=== PATIENT | female | born 1990 | race Caucasian/White ===

== ENCOUNTER 2022-06-25 14:18 | Emergency (ER) | payer BC, MEDICAID, SELFPAY ==
--- NOTE | ~2022-06-25 | XR_ITS ---
EXAMINATION: XR ankle RT min 3V INDICATION: Right ankle pain TECHNIQUE: Four views of the right ankle are obtained. COMPARISON: None available FINDINGS: There is lateral soft tissue swelling of ankle. Bone alignment is normal. There is no fract ure. The ankle mortise is intact. A plantar calcaneal enthesophyte is noted. IMPRESSION: 1. Ankle soft tissue swelling without acute osseous abnormality. Reviewed, dictated and finalized at location L.
[2022-06-25 14:26] VITALS: BP 113/79; PULSE 99; RESP 16; TEMP 37; O2SAT 99
--- NOTE | 2022-06-25 14:30 | ED.LOWEXIN ---
HPI - Extremity Injury (Lower) General Chief Complaint: Extremity Injury, Lower Stated Complaint: INJURED R ANKLE Time Seen by Provider: 06/25/22 14:25 Source: patient and RN notes reviewed History of Present Illness HPI Narrative: Patient is a 32-year-old female who presents to urgent care with complaints of right ankle swelling and pain. Patient states that she rolled it yesterday while stepping off a curb. Patient states that she has had went a colles her whole life but denies any known fractures. Patient states that she has used ibuprofen and elevated the foot. No other acute complaints. No acute distress noted. Patient aware of the plan of care. Some parts of this dictation were generated by voice recognition software and may contain typographical and/or grammatical inaccuracies. Related Data Allergies Allergy/AdvReac Type Severity Reaction Status Date / Time No Known Allergies Allergy Verified 04/18/22 10:12 Review of Systems Review of Systems: CONSTITUTIONAL: Denies fever, chills, or sweats. EYES: Denies visual changes, redness, or discharge. ENT: Denies rhinorrhea, congestion, sore throat, or otalgia. CARDIOVASCULAR: Denies chest pain, palpitations, or edema. RESPIRATORY: Denies cough or dyspnea. GASTROINTESTINAL: Denies abdominal pain, nausea, vomiting, or diarrhea. GENITOURINARY: Denies dysuria or hematuria. SKIN: Denies rash or itching. MUSCULOSKELETAL: Reports right ankle pain and swelling NEUROLOGIC: Denies headache, numbness, or weakness. All other systems reviewed are negative, except as documented in HPI. [facility] Past Medical History Medical History Anxiety Surgical History Surgical History Delivery by section Family History Family History Mother Patient's mother is in good health Sibling Patient's sister is in good health Patient's brother is in good health Father SOB (shortness of breath) Social History Social History (Updated 04/18/22 @ 10:14 by Rosa Isela Melo MA) Smoking status: Never smoker Smoking end date: 03/24/17 Alcohol intake: current Alcohol use details: occasional Lack of Transportation: No Lack of Food: Never True Current Housing: I Have Housing Concerned About Future Housing: No Difficulty Paying Gas/Electric Bills: No Difficulty Paying for Meds: No Education: Associate Degree Comments At the time of my signature, I reviewed and agree with the nursing past medical, surgical, social, and family history. There is no relevant family history pertinent to the patient complaint. Exam Narrative: GENERAL: This is a well-nourished, well-developed patient, in no apparent distress. HEAD: normocephalic, atraumatic. EYES: PERRL. Sclera clear/white. Vision is grossly intact. EARS: External ears normal NOSE: External nose normal with no obvious nasal discharge, nares without redness, no rhinorrhea. THROAT: Mucous membranes moist NECK: Neck supple SKIN: warm, intact with no suspicious lesions or rash, good texture and turgor. NEURO: awake, alert, and oriented to person, place and time. There were no obvious focal neurologic abnormalities. EXTREMITIES: Moderate edema without ecchymosis or obvious deformity noted to the right lateral malleolus with mild tenderness. Range of motion within normal limits with moderate exacerbated pain on flexion. Positive strong right pedal pulse with capillary refill less than 2 seconds. Course Course Level of Care: Express Care Visit Vital Signs Vital signs: Vital Signs Temperature 98.6 F 06/25/22 14:26 Pulse Rate 99 06/25/22 14:26 Respiratory Rate 16 06/25/22 14:26 Blood Pressure 113/79 06/25/22 14:26 Pulse Oximetry 99 06/25/22 14:26 Oxygen Delivery Room Air 06/25/22 14:26 Temperature 98.6 F 06/25/22 14:26 Pulse Rate
== END 2022-06-25 15:00 | disposition home or self-care (01) ==
PROVIDERS: Emergency Provider Nurse Practitioner Family; PCP Internal Medicine
DX: S93.401A Sprain of unspecified ligament of right ankle, initial encounter (principal); X50.9XXA Other and unspecified overexertion or strenuous movements or postures, initial encounter; F41.9 Anxiety disorder, unspecified; Z87.891 Personal history of nicotine dependence
CPT/HCPCS: 73610; 99213; G0463

== ENCOUNTER → 2022-10-31 09:55 | Outpatient (CLI) | payer BC, MEDICAID, SELFPAY ==
--- NOTE | ~2022-10-31 | XR_ITS ---
Right ankle Technique: AP, oblique, and lateral views were obtained. Clinical History: Injury Findings: No acute fracture or dislocation is seen. Osseous alignment is anatomic. Ankle mortise and other visualized joint spaces are preserved. Soft tissues are otherwise unremarkable. Impression: Unremarkable right ankle. Reviewed, dictated and finalized at location . Impression: Unremarkable right ankle.
== END ==
PROVIDERS: PCP Clinical Nurse Specialist; Visit Provider Clinical Nurse Specialist
DX: S99.911A Unspecified injury of right ankle, initial encounter (principal); X58.XXXA Exposure to other specified factors, initial encounter
CPT/HCPCS: 73610

== ENCOUNTER → 2022-11-08 13:25 | Outpatient (CLI) | payer BC, MEDICAID, SELFPAY ==
--- NOTE | ~2022-11-08 | MR_ITS ---
EXAMINATION: MR ankle RT wo con DATE: 11/08/2022 14:05 INDICATION: Right ankle injury TECHNIQUE: Magnetic resonance imaging (MRI) of the right ankle was performed without intravenous cont rast. Sequences included sagittal, coronal, and axial PD-weighted FSE and fluid sensitive FSE STIR an d axial and sagittal PD-weighted FS FSE. COMPARISON: None. FINDINGS: Medial ankle ligaments: Deep deltoid ligament and spring ligament complex are normal. There is thickening of the superficial deltoid ligament without significant surrounding soft tissue edema is likely represents scarring rela zoila to chronic sprain. Lateral ankle ligaments: The anterior and posterior inferior tibiofibular ligaments and the posterior talofibular ligament are normal. There is thickening and mild increased signal of the anterior talofibular ligament and of th e calcaneofibular ligament with mild surrounding soft tissue edema consistent with likely relatively recent partial tears. Tendons: Small enthesophyte at the calcaneal insertion of the otherwise normal Achilles tendon. The peroneus l ongus and brevis tendons are normal. The tibialis anterior and extensor hallucis longus and extensor digitorum longus tendons are normal. The tibialis posterior, flexor digitorum longus and flexor hallu cis longus tendons are normal. Plantar fascia: Mild thickening and mild increased signal of the central component of the plantar aponeurosis with sm all enthesophyte at its calcaneal origin consistent with chronic enthesopathy. No surrounding soft ti ssue or marrow edema to suggest acute plantar fasciitis. Bones/other: Bone alignment is normal. Normal marrow signal throughout with no reactive edema, fracture or patholo gic marrow replacing process. Joint spaces are normal. Fluid: Ankle joint effusion is present with fluid and more heterogeneous T2 hyperintense synovitis at the an terior and posterior recess of the joint space. Is also a small talonavicular joint effusion at the d orsal recess of the joint space. There is additional increased fluid signal at the sinus Tarsi which can be seen with sinus Tarsi syndrome. IMPRESSION: 1. Recent-appearing partial tears of the anterior talofibular and calcaneofibular ligaments. 2. Likely chronic sprain with residual mild scarring of the superficial deltoid ligament. 3. Nonspecific moderate-sized right ankle joint effusion with associated synovitis. Small talonavicul ar joint effusion. 4. Increased fluid signal at the sinus Tarsi which can be seen with sinus Tarsi syndrome. Reviewed, dictated and finalized at location A. IMPRESSION: 1. Recent-appearing partial tears of the anterior talofibular and calcaneofibul ar ligaments. 2. Likely chronic sprain with residual mild scarring of the superficial deltoid ligament. 3. Nonspecific moderate-sized right ankle joint effusion with associated synovi tis. Small talonavicular joint effusion. 4. Increased fluid signal at the sinus Tarsi which can be seen with sinus Tarsi syndrome.
== END ==
PROVIDERS: PCP Clinical Nurse Specialist; Visit Provider Clinical Nurse Specialist
DX: M25.471 Effusion, right ankle (principal); S93.411A Sprain of calcaneofibular ligament of right ankle, initial encounter; S93.491A Sprain of other ligament of right ankle, initial encounter; X58.XXXA Exposure to other specified factors, initial encounter
CPT/HCPCS: 73721